=== PATIENT | female | born 1995 | race Caucasian/White ===

== ENCOUNTER 2018-07-23 09:14 | Emergency (ER) | payer SELFPAY ==
[2018-07-23 09:18] VITALS: O2SAT 99
--- NOTE | 2018-07-23 09:56 | ED PDOC ---
HPI: CCC, URI, Sore Throat Time Seen by Provider: 07/23/18 09:40 Chief Complaint (Nursing): Flu-like Symptoms History Per: Patient Onset/Duration Of Symptoms: Days (2) Current Symptoms Are (Timing): Still Present Location Of Pain: Throat Associated Symptoms: Fever, Sore Throat, Cough, Nasal Congestion. denies: Sputum Severity: Moderate Additional Complaint(s): Sore throat fever cough nonproductive assoc with bodyaches x 2-3 days. Rib pain when coughing. Denies SOB Past Medical History Vital Signs: Last Vital Signs Temp 100.0 F H 07/23/18 09:17 Pulse 124 H 07/23/18 09:17 Resp 17 07/23/18 09:17 BP 119/83 07/23/18 09:17 Pulse Ox 99 07/23/18 09:17 Primary Care Provider: FAMILY PROVIDER,NO - Medical History PMH: Asthma Denies: Chronic Kidney Disease - Family History Family History: States: Unknown Family Hx - Home Medications Home Medications: Ambulatory Orders Medication Instructions Recorded Nitrofurantoin Macrocrystals 100 mg PO BID #14 cap 08/13/16 [Macrobid] Oseltamivir Cap [Tamiflu] 75 mg PO BID #10 cap 07/23/18 - Allergies Allergies/Adverse Reactions: Allergies Allergy/AdvReac Type Severity Reaction Status Date / Time shrimp Allergy RASH Verified 07/23/18 09:22 Review of Systems Constitutional: Positive for: Fever, Malaise ENT: Positive for: Nose Congestion, Throat Pain Respiratory: Positive for: Cough. Negative for: Sputum Physical Exam - Physical Exam Appears: Positive for: Non-toxic, No Acute Distress Skin: Positive for: Normal Color, Warm, DRY ENT: Positive for: Pharyngeal Erythema. Negative for: Tonsillar Exudate Neck: Positive for: Normal, Painless ROM, Supple Cardiovascular/Chest: Positive for: Regular Rate, Rhythm Respiratory: Positive for: Normal Breath Sounds Neurological/Psych: Positive for: Awake, Alert, Normal Tone. Negative for: Motor/Sensory Deficits - ECG O2 Sat by Pulse Oximetry: 99 Disposition - Clinical Impression Clinical Impression: Influenza - Patient ED Disposition Is Patient to be Admitted: No Counseled Patient/Family Regarding: Studies Performed, Diagnosis, Need For Followup, Rx Given - Disposition Referrals: [facility] [Outside] Disposition: Routine/Home Disposition Time: 12:04 Condition: FAIR Prescriptions: Oseltamivir Cap [Tamiflu] 75 mg PO BID #10 cap Instructions: Flu Forms: [employer] (J[place]ican)
--- NOTE | 2018-07-23 12:37 | RAD ---
Date of service: 07/23/2018 HISTORY: Cough COMPARISON: No prior. TECHNIQUE: Chest PA and lateral FINDINGS: LINES AND TUBES: None. LUNG AND PLEURA: The lungs are well inflated and clear. No pleural effusion or pneumothorax. HEART AND MEDIASTINUM: The heart is not enlarged. No aortic atherosclerotic calcifications present. The hilar and mediastinal contours are within normal limits. SKELETAL STRUCTURES: The bony structures are within normal limits for the patient's age. VISUALIZED UPPER ABDOMEN: Normal. OTHER FINDINGS: None. IMPRESSION: No active pulmonary disease.
[2018-07-23 13:12] VITALS: BP 108/60; PULSE 68; RESP 15; TEMP 99.1
== END 2018-07-23 12:11 | disposition home or self-care (01) ==
LOC: H.ER 09:14
DX: J11.1 Influenza due to unidentified influenza virus with other respiratory manifestations (principal)